=== PATIENT | female | born 2000 | race Caucasian/White ===

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

== ENCOUNTER 2020-01-22 12:45 | Outpatient (CLI) | payer BC ==
[~2020-01-22] VITALS: Ht 152.4 cm; Wt 120.5 kg
[2020-01-22 13:04] VITALS: BP 131/96
== END 2020-01-22 14:37 | disposition home or self-care (01) ==
LOC: LDOP 12:45
PROVIDERS: ATTEND Obstetrics & Gynecology
DX: O36.8130 Decreased fetal movements, third trimester, not applicable or unspecified (principal); Z3A.36 36 weeks gestation of pregnancy
CPT/HCPCS: 59025; 99211; G0463

== ENCOUNTER 2020-01-31 21:27 | Outpatient (CLI) | payer BC ==
[~2020-01-31] VITALS: Ht 152.4 cm; Wt 120.9 kg
[2020-01-31 22:06] VITALS: BP 123/72
[2020-01-31 22:13] LABS: MICROSCOPIC INDICATED
== END 2020-01-31 23:07 | disposition home or self-care (01) ==
LOC: LDOP 21:27
PROVIDERS: ATTEND Obstetrics & Gynecology
DX: O62.9 Abnormality of forces of labor, unspecified (principal); Z3A.37 37 weeks gestation of pregnancy
CPT/HCPCS: 59025; 81001; 87086; 89060; Q0114

== ENCOUNTER 2020-02-05 18:23 | Outpatient (CLI) | payer BC ==
[~2020-02-05] VITALS: Ht 152.4 cm; Wt 95.5 kg
[2020-02-05 18:49] VITALS: BP 119/68
== END 2020-02-05 19:45 | disposition home or self-care (01) ==
LOC: LDOP 18:23
PROVIDERS: ATTEND Obstetrics & Gynecology
DX: O26.893 Other specified pregnancy related conditions, third trimester (principal); Z3A.38 38 weeks gestation of pregnancy
CPT/HCPCS: 59025; 89060; Q0114

== ENCOUNTER 2020-02-12 07:10 | Inpatient (IN) | payer BC ==
[~2020-02-12] VITALS: Ht 152.4 cm; Wt 120.9 kg
[2020-02-12] MEDS: LACTATED RINGERS 1,000 ML IV SCH ×4 (07:30→17:03)
[2020-02-12] MEDS ORDERED: MISOPROSTOL 25 MCG TABLET ONE ×2 (07:35→11:28)
[2020-02-12] MEDS: MISOPROSTOL 25 MCG TABLET VG PRN ×2 (07:35→11:32)
[2020-02-12] MEDS ORDERED: ONDANSETRON 2MG/ML, 2ML IVPush PRN (08:00)
[2020-02-12] MEDS ORDERED: D5%-LACTATED RINGERS 1,000 ML IV SCH (08:00)
[2020-02-12] MEDS ORDERED: OXYTOCIN 30U/ 0.9% NaCL 500ML 500 ML IV PRN (08:00)
[2020-02-12] MEDS ORDERED: SODIUM CITRATE/CITRIC ACID 30 ML UDC PO PRN (08:00)
[2020-02-12] MEDS ORDERED: TERBUTALINE 1 MG/ML, 1ML SQ PRN (08:00)
[2020-02-12] MEDS ORDERED: METOCLOPRAMIDE 5 MG/ML, 2ML IVPush PRN (08:00)
[2020-02-12] MEDS ORDERED: OXYTOCIN 30U/ 0.9% NaCL 500ML 500 ML IV ONE (08:00)
[2020-02-12] MEDS ORDERED: FENTANYL PF 100 MCG/2ML IV PRN (08:00)
[2020-02-12] MEDS ORDERED: TERBUTALINE 1 MG/ML, 1ML IVPush PRN (08:00)
[2020-02-12] MEDS ORDERED: CALCIUM CARBONATE 500 MG TAB.CHEW PO PRN (08:00)
[2020-02-12 08:30] VITALS: BP 117/69
[2020-02-12 11:23] LABS: BASOPHILS % (AUTO) 0 % (0-1); EOSINOPHILS % (AUTO) 1 % (1-7); LYMPHOCYTES % (AUTO) 27 % (22-44); MEAN CORPUSCULAR HEMOGLOBIN 29.6 pg (27.0-34.8); MEAN CORPUSCULAR HGB CONC 33.2 g/dL (32.4-35.8); MEAN PLATELET VOLUME 8.2 fL (7.4-10.4); MONOCYTES % (AUTO) 9 % (2-9); NEUTROPHILS % (AUTO) 63 % (42-75); PLATELET COUNT 397 x10^3/uL (130-400); RED BLOOD COUNT 4.27 x10^6/uL (3.82-5.3); RED CELL DISTRIBUTION WIDTH 15.4 % (9.6-15.2)
[2020-02-12] MEDS ORDERED: NEWBORN KIT ONE (11:27)
[2020-02-12] MEDS ORDERED: OXYTOCIN 30U/ 0.9% NaCL 500ML 500 ML ONE ×2 (11:28→22:42)
[2020-02-12] MEDS ORDERED: LIDOCAINE 1%, 20ML ONE (11:28)
[2020-02-12] MEDS ORDERED: MISOPROSTOL 200 MCG TABLET ONE (11:28)
[2020-02-12 11:34] LABS: MD NO
[2020-02-12] MEDS ORDERED: FENTANYL PF 100 MCG/2ML ONE ×5 (13:14→21:00)
[2020-02-12] MEDS: FENTANYL PF 100 MCG/2ML IVPush PRN ×3 (13:19→21:01)
[2020-02-12] MEDS ORDERED: FENTANYL PF 500 MCG, BUPIVACAINE/PF 0.5%, 30ML 62.5 ML in SODIUM CHLORIDE 0.9% 177.5 ML EPIDCONT SCH (14:00)
[2020-02-12] MEDS ORDERED: BUPIVACAINE 0.25% ONE (16:27)
[2020-02-12] MEDS ORDERED: LIDOCAINE/PF 1.5%-EPI 1:200K, 30ML ONE (16:35)
[2020-02-12] MEDS ORDERED: FENTANYL/BUPIV./NS/PF 250 ML EPIDCONT SCH (18:00)
[2020-02-12] MEDS ORDERED: LACTATED RINGERS 1,000 ML IVBOLUS PRN (18:00)
[2020-02-12] MEDS ORDERED: ONDANSETRON 2MG/ML, 2ML ONE (18:25)
[2020-02-12] MEDS ORDERED: MISOPROSTOL 200 MCG TABLET PR PRN (21:30)
[2020-02-12] MEDS ORDERED: SIMETHICONE 80 MG CHEW TAB PO PRN (21:30)
[2020-02-12] MEDS ORDERED: OXYcodone/APAP 5/325MG TABLET PO PRN (21:30)
[2020-02-12] MEDS ORDERED: METHYLERGONOVINE 0.2 MG/ML IM PRN (21:30)
[2020-02-12] MEDS ORDERED: ACETAMINOPHEN 325 MG TABLET PO PRN ×2 (21:30)
[2020-02-12] MEDS ORDERED: ONDANSETRON 2MG/ML, 2ML IV PRN (21:30)
[2020-02-12] MEDS ORDERED: OXYTOCIN 30U/ 0.9% NaCL 500ML 500 ML IV SCH (21:30)
[2020-02-12 23:55] VITALS: BP 99/63
[2020-02-13] MEDS: IBUPROFEN 600 MG TABLET PO PRN ×3 (01:58→17:24)
[2020-02-13] MEDS: LACTATED RINGERS 1,000 ML IV SCH (02:00)
[2020-02-13 04:45] VITALS: BP 111/67
[2020-02-13 05:14] LABS: BASOPHILS % (AUTO) 0 % (0-1); EOSINOPHILS % (AUTO) 0 % (1-7); LYMPHOCYTES % (AUTO) 13 % (22-44); MEAN CORPUSCULAR HGB CONC 32.6 g/dL (32.4-35.8); MONOCYTES % (AUTO) 8 % (2-9); NEUTROPHILS % (AUTO) 79 % (42-75); PLATELET COUNT 359 x10^3/uL (130-400); RED BLOOD COUNT 3.71 x10^6/uL (3.82-5.3); RED CELL DISTRIBUTION WIDTH 15.2 % (9.6-15.2)
[2020-02-13 05:15] LABS: MD NO
[2020-02-13 08:01] VITALS: BP 106/68
[2020-02-13] MEDS: DOCUSATE 100 MG CAPSULE PO PRN ×2 (11:41→19:18)
[2020-02-13] MEDS: PRENATAL VIT/IRON/FA 1 EACH TABLET PO SCH (11:41)
[2020-02-13 13:15] VITALS: BP 129/82
[2020-02-13 17:15] VITALS: BP 108/71
[2020-02-13] MEDS: OXYcodone/APAP 5/325MG TABLET PO PRN ×2 (19:18→23:40)
[2020-02-13 20:30] VITALS: BP 109/74
[2020-02-14] VITALS: BP 99/67
[2020-02-14] MEDS: OXYcodone/APAP 5/325MG TABLET PO PRN ×2 (04:35→10:21)
[2020-02-14 08:03] VITALS: BP 105/74
[2020-02-14] MEDS: DOCUSATE 100 MG CAPSULE PO PRN (08:25)
[2020-02-14] MEDS: PRENATAL VIT/IRON/FA 1 EACH TABLET PO SCH (08:25)
[2020-02-14] MEDS: IBUPROFEN 600 MG TABLET PO PRN (08:25)
[2020-02-14] MEDS ORDERED: IBUP-1222 PO (10:03)
== END 2020-02-14 11:45 | disposition home or self-care (01) | DRG 807 ==
LOC: LDIP 07:10 → 2NW 23:20
PROVIDERS: ADMIT Obstetrics & Gynecology; ATTEND Obstetrics & Gynecology
PROC: 10E0XZZ Delivery of Products of Conception, External Approach (ICD-10-PCS; principal; 2020-02-12)
PROC: 0KQM0ZZ Repair Perineum Muscle, Open Approach (ICD-10-PCS; 2020-02-12)
PROC: 3E0R3BZ Introduction of Anesthetic Agent into Spinal Canal, Percutaneous Approach (ICD-10-PCS; 2020-02-12)
PROC: 00HU33Z Insertion of Infusion Device into Spinal Canal, Percutaneous Approach (ICD-10-PCS; 2020-02-12)
DX: O76 Abnormality in fetal heart rate and rhythm complicating labor and delivery (principal); Z37.0 Single live birth; O99.214 Obesity complicating childbirth; E66.01 Morbid (severe) obesity due to excess calories; Z3A.39 39 weeks gestation of pregnancy; Z20.828 Contact with and (suspected) exposure to other viral communicable diseases; O69.81X0 Labor and delivery complicated by cord around neck, without compression, not applicable or unspecified; O77.0 Labor and delivery complicated by meconium in amniotic fluid; O70.1 Second degree perineal laceration during delivery
CPT/HCPCS: 36415; 85025; 86592; 86850; 86900; 87635; 87806; G0378; J2405; J3010; G0475; J7050; J7120

== ENCOUNTER 2020-10-29 07:30 | Inpatient (IN) | payer BC, MEDICAID ==
[~2020-10-29] VITALS: Ht 152.4 cm; Wt 111.0 kg
[~2020-10-29 07:30] MED LIST changes: +IBUP-1222 PO
--- NOTE | 2020-10-29 08:14 | NUR ---
PT IN GOWN IN [facility]. PT ATTACHED TO VS MONITORS. PT VSS AT THIS TIME. PT EDUCATED ON ER PROCESS AND POC AND VERBALIZES UNDERSTANDING. AWAITING ERP FOR PT HISTORY AND ASSESSMENT AT THIS TIME.
--- NOTE | 2020-10-29 08:23 | NUR ---
DR CROCKER AT BS WITH PT AT THIS TIME.
[2020-10-29] MEDS ORDERED: ACETAMINOPHEN 500 MG TABLET PO ONE (09:00)
--- NOTE | 2020-10-29 09:15 | NUR ---
PT PLACED ON 02 AT THIS TIME TO MAINTAIN SATURATION ABOVE 92%. PIV ACCESS ESTABLISHED AND LABS DRAWN AT THIS TIME.
[2020-10-29] MEDS ORDERED: ACETAMINOPHEN 500 MG TABLET ONE (09:29)
[2020-10-29 09:30] LABS: BASOPHILS % (AUTO) 0 % (0-1); EOSINOPHILS % (AUTO) 0 % (1-7); LYMPHOCYTES % (AUTO) 37 % (22-44); MEAN CORPUSCULAR HEMOGLOBIN 29.2 pg (27.0-34.8); MEAN PLATELET VOLUME 7.7 fL (7.4-10.4); MONOCYTES % (AUTO) 10 % (2-9); NEUTROPHILS % (AUTO) 52 % (42-75); PLATELET COUNT 234 x10^3/uL (130-400); RED BLOOD COUNT 5.25 x10^6/uL (3.82-5.3); RED CELL DISTRIBUTION WIDTH 14.7 % (9.6-15.2)
[2020-10-29] MEDS ORDERED: SODIUM CHLORIDE 0.9% 1,000ML IVBOLUS ONE ×3 (09:30→19:30)
[2020-10-29 09:37] LABS: ALBUMIN 3.6 g/dL (3.4-5.0); ANION GAP 6 mmol/L (5-15); CHLORIDE 104 mmol/L (98-107); CREATININE 0.83 mg/dL (0.55-1.02)
--- NOTE | 2020-10-29 09:46 | NUR ---
PT MEDICATED PER APR. PT VSS AND UPDATED IN EMR AT THIS TIME.
[2020-10-29 09:48] LABS: RAPID INFLUENZA A Negative (Negative); RAPID INFLUENZA B Negative (Negative)
[2020-10-29] MEDS ORDERED: CEFTRIAXONE 1,000 MG in DEXTROSE 5% 50 ML IVPB ONE ×2 (11:00→14:00)
--- NOTE | 2020-10-29 11:09 | NUR ---
ABX INITIATED AT THIS TIME PER MAR. MORE IV FLUIDS HUNG PER MAR.
[2020-10-29] MEDS ORDERED: AZITHROMYCIN 500 MG in SODIUM CHLORIDE 0.9% 250 ML IV ONE (12:00)
--- NOTE | 2020-10-29 12:19 | NUR ---
PT AWARE OF NEED FOR UA. PT VSS AND UPDATED IN EMR AT THIS TIME.
[2020-10-29] MEDS ORDERED: IBUPROFEN 600 MG TABLET PO PRN (14:30)
[2020-10-29] MEDS ORDERED: ONDANSETRON ODT 4 MG PO PRN (14:30)
[2020-10-29] MEDS ORDERED: ENOXAPARIN 40 MG/0.4 ML SQ SCH (14:30)
--- NOTE | 2020-10-29 14:33 | NUR ---
Pt to be admitted to MED[facility], room 343. Report called to RYANNE.
--- NOTE | 2020-10-29 14:36 | NUR ---
ASSUMING CARE OF PT AFTER BEDSIDE REPORT FROM SEFERINO PARKER AND HARVINDER PARKER.
[2020-10-29 15:10] VITALS: BP 95/63
[2020-10-29 18:32] VITALS: BP 96/63
[2020-10-29] MEDS: ACETAMINOPHEN 325 MG TABLET PO PRN (19:34)
[2020-10-29] MEDS: ENOXAPARIN 40 MG/0.4 ML SQ SCH (20:20)
[2020-10-29] MEDS: FAMOTIDINE 20 MG TABLET PO SCH (20:21)
[2020-10-29] MEDS ORDERED: BENZONATATE 100 MG CAPSULE ONE (20:35)
[2020-10-29] MEDS: BENZONATATE 100 MG CAPSULE PO PRN (20:38)
[2020-10-29] MEDS: SODIUM CHLORIDE 0.9% 1,000 ML IV SCH (21:13)
[2020-10-30 01:19] VITALS: BP 91/62
[2020-10-30] MEDS: ACETAMINOPHEN 325 MG TABLET PO PRN ×3 (02:47→20:40)
[2020-10-30] MEDS: SODIUM CHLORIDE 0.9% 1,000 ML IV SCH (02:47)
[2020-10-30] MEDS: BENZONATATE 100 MG CAPSULE PO PRN ×3 (02:47→20:39)
[2020-10-30] MEDS: ONDANSETRON 2MG/ML, 2ML IVPush PRN ×3 (02:47→20:57)
[2020-10-30 05:58] LABS: BASOPHILS % (AUTO) 0 % (0-1); EOSINOPHILS % (AUTO) 0 % (1-7); LYMPHOCYTES % (AUTO) 45 % (22-44); MEAN CORPUSCULAR HEMOGLOBIN 29.3 pg (27.0-34.8); MEAN PLATELET VOLUME 7.7 fL (7.4-10.4); MONOCYTES % (AUTO) 7 % (2-9); NEUTROPHILS % (AUTO) 47 % (42-75); PLATELET COUNT 200 x10^3/uL (130-400); RED CELL DISTRIBUTION WIDTH 14.2 % (9.6-15.2)
[2020-10-30 06:01] LABS: ALBUMIN 2.6 g/dL (3.4-5.0); ANION GAP 6 mmol/L (5-15); CALCIUM 6.9 mg/dL (8.5-10.1); CHLORIDE 110 mmol/L (98-107)
[2020-10-30 06:11] LABS: ALANINE AMINOTRANSFERASE 75 U/L (12-78); ALKALINE PHOSPHATASE 40 U/L (45-117); BILIRUBIN,TOTAL 0.3 mg/dL (0.2-1.0); CREATININE 0.51 mg/dL (0.55-1.02)
[2020-10-30 07:17] LABS: MICROSCOPIC NOT IND
[2020-10-30 08:23] VITALS: BP 85/57
[2020-10-30] MEDS: DEXAMETHASONE 4 MG/ML, 1ML IVPush SCH (08:54)
[2020-10-30] MEDS: FAMOTIDINE 20 MG TABLET PO SCH ×2 (08:55→20:39)
[2020-10-30] MEDS: ZINC SULFATE 220 MG CAPSULE PO SCH (08:55)
[2020-10-30] MEDS: CHOLECALCIFEROL 5,000u TAB PO SCH (08:55)
[2020-10-30] MEDS: THIAMINE 100MG TABLET PO SCH (08:55)
[2020-10-30] MEDS ORDERED: POTASSIUM CHLORIDE 20 MEQ TAB.ER.PRT PO ONE (11:30)
[2020-10-30] MEDS ORDERED: REMDESIVIR 200 MG in SODIUM CHLORIDE 0.9% 100 ML IVPB ONE (12:30)
[2020-10-30 12:37] VITALS: BP 90/65
[2020-10-30 19:21] VITALS: BP 118/80
[2020-10-30] MEDS: ENOXAPARIN 40 MG/0.4 ML SQ SCH (20:39)
[2020-10-31 01:14] VITALS: BP 105/62
[2020-10-31 05:54] LABS: CHLORIDE 108 mmol/L (98-107)
[2020-10-31 06:02] LABS: ALANINE AMINOTRANSFERASE 68 U/L (12-78); ALBUMIN 2.7 g/dL (3.4-5.0); ALKALINE PHOSPHATASE 43 U/L (45-117); ANION GAP 7 mmol/L (5-15); BILIRUBIN,TOTAL 0.3 mg/dL (0.2-1.0); CALCIUM 8.5 mg/dL (8.5-10.1); CREATININE 0.45 mg/dL (0.55-1.02); TOTAL PROTEIN 6.6 g/dL (6.4-8.2)
[2020-10-31] MEDS: DEXAMETHASONE 4 MG/ML, 1ML IVPush SCH (07:42)
[2020-10-31] MEDS: DOXYCYCLINE 100MG TABLET PO SCH ×2 (07:42→21:04)
[2020-10-31] MEDS: CEFTRIAXONE 2 GM in DEXTROSE 5% 50 ML IVPB SCH (07:42)
[2020-10-31] MEDS: ZINC SULFATE 220 MG CAPSULE PO SCH (07:42)
[2020-10-31] MEDS: FAMOTIDINE 20 MG TABLET PO SCH ×2 (07:43→21:05)
[2020-10-31] MEDS: THIAMINE 100MG TABLET PO SCH (07:43)
[2020-10-31] MEDS: CHOLECALCIFEROL 5,000u TAB PO SCH (07:43)
[2020-10-31] MEDS: ONDANSETRON 2MG/ML, 2ML IVPush PRN (08:11)
[2020-10-31] MEDS: BENZONATATE 100 MG CAPSULE PO PRN ×2 (08:11→21:05)
[2020-10-31 08:12] VITALS: BP 93/61
[2020-10-31] MEDS: ACETAMINOPHEN 325 MG TABLET PO PRN ×2 (08:12→21:05)
[2020-10-31] MEDS: REMDESIVIR 100 MG in SODIUM CHLORIDE 0.9% 100 ML IVPB SCH (12:16)
[2020-10-31 14:00] VITALS: BP 104/63
[2020-10-31 18:05] LABS: HCG UR SG 1.021 (1.003-1.030)
[2020-10-31 19:07] VITALS: BP 113/71
[2020-10-31] MEDS: ENOXAPARIN 40 MG/0.4 ML SQ SCH (21:05)
[2020-11-01 01:24] VITALS: BP 106/68
[2020-11-01 05:50] LABS: CHLORIDE 107 mmol/L (98-107)
[2020-11-01 06:08] LABS: ALANINE AMINOTRANSFERASE 61 U/L (12-78); ALBUMIN 2.8 g/dL (3.4-5.0); ALKALINE PHOSPHATASE 49 U/L (45-117); ANION GAP 8 mmol/L (5-15); BILIRUBIN,TOTAL 0.2 mg/dL (0.2-1.0); CALCIUM 8.3 mg/dL (8.5-10.1); TOTAL PROTEIN 6.9 g/dL (6.4-8.2)
[2020-11-01] MEDS: CEFTRIAXONE 2 GM in DEXTROSE 5% 50 ML IVPB SCH (06:13)
[2020-11-01 07:53] VITALS: BP 107/77
[2020-11-01] MEDS: DEXAMETHASONE 4 MG/ML, 1ML IVPush SCH (08:16)
[2020-11-01] MEDS: DOXYCYCLINE 100MG TABLET PO SCH ×2 (08:16→21:22)
[2020-11-01] MEDS: FAMOTIDINE 20 MG TABLET PO SCH ×2 (08:16→21:22)
[2020-11-01] MEDS: THIAMINE 100MG TABLET PO SCH (08:16)
[2020-11-01] MEDS: ZINC SULFATE 220 MG CAPSULE PO SCH (08:17)
[2020-11-01] MEDS: CHOLECALCIFEROL 5,000u TAB PO SCH (08:17)
[2020-11-01 08:46] LABS: BASOPHILS % (AUTO) 0 % (0-1); EOSINOPHILS % (AUTO) 0 % (1-7); LYMPHOCYTES % (AUTO) 26 % (22-44); MEAN CORPUSCULAR HGB CONC 33.8 g/dL (32.4-35.8); MONOCYTES % (AUTO) 10 % (2-9); NEUTROPHILS % (AUTO) 63 % (42-75); PLATELET COUNT 289 x10^3/uL (130-400); RED BLOOD COUNT 4.83 x10^6/uL (3.82-5.3); RED CELL DISTRIBUTION WIDTH 14.2 % (9.6-15.2)
[2020-11-01 08:48] LABS: HCT (SEDRATE) 41.4 % (34.6-47.8)
[2020-11-01 09:14] LABS: D-DIMER 0.34 ug/mlFEU (0.00-0.52)
[2020-11-01 09:16] LABS: C-REACTIVE PROTEIN, QUANT 1.4 mg/dL (0.02-0.49)
[2020-11-01] MEDS: REMDESIVIR 100 MG in SODIUM CHLORIDE 0.9% 100 ML IVPB SCH (12:33)
[2020-11-01 13:38] VITALS: BP 100/63
[2020-11-01] MEDS: ENOXAPARIN 40 MG/0.4 ML SQ SCH (17:38)
[2020-11-01 20:59] VITALS: BP 111/74
[2020-11-02 02:12] VITALS: BP 94/64
[2020-11-02] MEDS: ENOXAPARIN 40 MG/0.4 ML SQ SCH (04:00)
[2020-11-02] MEDS: CEFTRIAXONE 2 GM in DEXTROSE 5% 50 ML IVPB SCH (05:26)
[2020-11-02 05:53] LABS: HCT (SEDRATE) 42.5 % (34.6-47.8)
[2020-11-02 06:00] LABS: BASOPHILS % (AUTO) 0 % (0-1); EOSINOPHILS % (AUTO) 0 % (1-7); LYMPHOCYTES % (AUTO) 26 % (22-44); MEAN CORPUSCULAR HEMOGLOBIN 29.1 pg (27.0-34.8); MEAN CORPUSCULAR HGB CONC 33.9 g/dL (32.4-35.8); MEAN PLATELET VOLUME 8.4 fL (7.4-10.4); MONOCYTES % (AUTO) 12 % (2-9); NEUTROPHILS % (AUTO) 61 % (42-75); PLATELET COUNT 368 x10^3/uL (130-400); RED CELL DISTRIBUTION WIDTH 14.3 % (9.6-15.2)
[2020-11-02 06:01] LABS: D-DIMER 0.27 ug/mlFEU (0.00-0.52); INTERNATIONAL NORMALIZED RATIO 0.98 (0.93-1.1); PROTHROMBIN TIME 10.5 Seconds (9.6-11.5)
[2020-11-02 06:09] LABS: CHLORIDE 105 mmol/L (98-107)
[2020-11-02 06:16] LABS: ALANINE AMINOTRANSFERASE 57 U/L (12-78); ALBUMIN 2.9 g/dL (3.4-5.0); ALKALINE PHOSPHATASE 50 U/L (45-117); ANION GAP 5 mmol/L (5-15); BILIRUBIN,TOTAL 0.2 mg/dL (0.2-1.0); C-REACTIVE PROTEIN, QUANT 0.73 mg/dL (0.02-0.49); CALCIUM 8.6 mg/dL (8.5-10.1); CREATININE 0.54 mg/dL (0.55-1.02); TOTAL PROTEIN 6.9 g/dL (6.4-8.2)
[2020-11-02] MEDS: ZINC SULFATE 220 MG CAPSULE PO SCH (07:50)
[2020-11-02] MEDS: DOXYCYCLINE 100MG TABLET PO SCH (07:50)
[2020-11-02] MEDS: FAMOTIDINE 20 MG TABLET PO SCH (07:50)
[2020-11-02] MEDS: CHOLECALCIFEROL 5,000u TAB PO SCH (07:50)
[2020-11-02] MEDS: DEXAMETHASONE 4 MG/ML, 1ML IVPush SCH (07:50)
[2020-11-02] MEDS: THIAMINE 100MG TABLET PO SCH (07:50)
[2020-11-02 08:32] VITALS: BP 104/68
[2020-11-02] MEDS: REMDESIVIR 100 MG in SODIUM CHLORIDE 0.9% 100 ML IVPB SCH (12:39)
[2020-11-02] MEDS ORDERED: ZINC220C8 PO (13:31)
[2020-11-02] MEDS ORDERED: BENZ-17 PO (13:31)
[2020-11-02] MEDS ORDERED: CHOL500045 PO (13:31)
[2020-11-02] MEDS ORDERED: ASCO250T32 PO (13:32)
== END 2020-11-02 17:05 | disposition home or self-care (01) | DRG 871 ==
LOC: ED 08:29 → 3N 12:37 → SUATTDRO 13:10
PROVIDERS: ADMIT Internal Medicine; ATTEND Hospitalist
PROC: XW033E5 Introduction of Remdesivir Anti-infective into Peripheral Vein, Percutaneous Approach, New Technology Group 5 (ICD-10-PCS; principal; 2020-10-30)
DX: A41.89 Other specified sepsis (principal); J12.82 Pneumonia due to coronavirus disease 2019; J96.01 Acute respiratory failure with hypoxia; U07.1 COVID-19; Z68.42 Body mass index [BMI] 45.0-49.9, adult; E66.01 Morbid (severe) obesity due to excess calories; E66.9 Obesity, unspecified; R65.20 Severe sepsis without septic shock; Z79.899 Other long term (current) drug therapy
CPT/HCPCS: 36415; 71045; 80048; 80053; 81003; 81025; 82040; 82728; 83605; 83615; 83735; 83880; 84100; 84145; 85025; 85379; 85384; 85610; 85651; 86140; 87040; 87400; 96365; 96367; 99291; G0378; J0456; J0696; J1100; J1650; J2405; Q0162; U0005; J7030; J7050; U0003